=== PATIENT | female | born 1970 | race Caucasian/White ===

== ENCOUNTER → 2017-02-14 | Outpatient (CLI) | payer BC ==
[~2017-02-14] MED LIST: CONTRAST GIVEN MC PRN; ESCI5TAB8 PO; IOHEXOL 300 MG/ML 75 ML VIAL IV ONE
--- NOTE | 2017-02-14 12:41 | RAD ---
Chest, 2 views, 02/14/2017: History: Chest pain The heart size and pulmonary vascularity are normal. No pulmonary infiltrates are seen. There is no evidence of pleural fluid. Minimal spurring is present in the spine. IMPRESSION: No acute cardiopulmonary abnormality is detected.
--- NOTE | 2017-02-14 13:07 | RAD ---
Indication chest pain. Axial images of the chest were obtained. MIP images were generated and reviewed. The examination was tailored for the detection of pulmonary embolus. 75 cc of Omnipaque 300 was administered intravenously. No prior CT imaging of the chest is available. Imaging through the upper abdomen is unremarkable. There is a low-density mass in the liver measuring approximately 8 mm most compatible with an incidental small cyst. The thoracic aorta is unremarkable. There is no significant hilar or mediastinal adenopathy. The study is negative for pulmonary embolus. No acute parenchymal infiltrate is seen in either lung. A dominant soft tissue mass in the chest is not seen. There is a tiny nodule or thickening along the fissure in the right lung, image 77 series 3. This is likely incidental but follow-up along the lines of the Fleischner criteria should be considered. IMPRESSION: No acute finding seen in the chest. Negative study for pulmonary embolus Possible small nodule in the right lower lung field. Nodules detected incidentally at non-screening CT Nodule size (mm) less than or equal to 4 Low Risk patients- no follow-up needed High Risk patients- follow-up at 12 months and if no change, no further imaging needed. Nodule size > 4-6 mm Low risk patients- follow- up at 12 months and if no change, no further imaging needed High risk patients- initial follow-up CT at 6-12 months and then at 18-24 months if no change. Nodule Size > 6-8 mm Low risk patients- initial follow-up CT at 6-12 months and then at 18-24 months if no change. High risk patients- initial follow- up CT at 3-6 months and then at 9-12 months if no change, Nodule Size >8 mm Either low or high risk patients: Follow-up CT at around 3, 9 and [address], PET, and/or biopsy Note: newly detected indeterminate nodule in person 35 years of age or older. Low risk patients- minimal or absent history of smoking and/or other known risk factors. High risk patients- history of smoking or of other known risk factors. PQRS Compliance Statement: One or more of the following individualized dose reduction techniques were utilized for this examination: 1. Automated exposure control 2. Adjustment of the mA and/or kV according to patient size 3. Use of iterative reconstruction technique
== END | disposition home or self-care (01) ==
LOC: CT 11:46
PROVIDERS: ATTEND Family Medicine
DX: R07.9 Chest pain, unspecified (principal)
CPT/HCPCS: 71020; 71275; Q9967